=== PATIENT | female | born 1985 | race Caucasian/White ===

== ENCOUNTER → 2020-05-09 | Outpatient (CLI) | payer BC ==
[2020-05-09 15:25] LABS: BASOPHILS # (AUTO) 0.04 x10^3/uL (0-0.1); BASOPHILS % (AUTO) 0 % (0-1); EOSINOPHILS # (AUTO) 0.14 x10^3/uL (0-0.4); EOSINOPHILS % (AUTO) 1 % (1-7); LYMPHOCYTES # (AUTO) 1.59 x10^3/uL (1-3.4); LYMPHOCYTES % (AUTO) 15 % (22-44); MD NO; MEAN CORPUSCULAR HGB CONC 33.4 g/dL (32.4-35.8); MEAN CORPUSCULAR VOLUME 89.6 fL (80-100); MEAN PLATELET VOLUME 8.1 fL (7.4-10.4); MONOCYTES # (AUTO) 0.51 x10^3/uL (0.2-0.8); MONOCYTES % (AUTO) 5 % (2-9); NEUTROPHILS # (AUTO) 8.07 x10^3/uL (1.8-6.8); NEUTROPHILS % (AUTO) 78 % (42-75); PLATELET COUNT 361 x10^3/uL (130-400); RED BLOOD COUNT 4.18 x10^6/uL (3.82-5.3); RED CELL DISTRIBUTION WIDTH 15.6 % (9.6-15.2)
[2020-05-09 15:37] LABS: ALANINE AMINOTRANSFERASE 68 U/L (12-78); ALBUMIN 3.3 g/dL (3.4-5.0); ANION GAP 9 mmol/L (5-15); CALCIUM 9.5 mg/dL (8.5-10.1); CHLORIDE 106 mmol/L (98-107); CREATININE 0.58 mg/dL (0.55-1.02)
[2020-05-09 15:40] LABS: ALKALINE PHOSPHATASE 98 U/L (45-117); BILIRUBIN,TOTAL 0.8 mg/dL (0.2-1.0); TOTAL PROTEIN 7.1 g/dL (6.4-8.2)
== END | disposition home or self-care (01) ==
LOC: LAB 14:57
PROVIDERS: ATTEND Student in an Organized Health Care Education/Training Program
DX: O09.521 Supervision of elderly multigravida, first trimester (principal); Z3A.00 Weeks of gestation of pregnancy not specified
CPT/HCPCS: 36415; 80053; 82306; 84156; 85025; 86592; 86762; 86803; 86850; 86900; 87086; 87340; 87806; G0475

== ENCOUNTER 2020-11-03 08:10 | Outpatient (CLI) | payer BC ==
[~2020-11-03] VITALS: Ht 160 cm; Wt 115.0 kg
[2020-11-03 08:19] VITALS: BP 138/85
== END 2020-11-03 10:37 | disposition home or self-care (01) ==
LOC: LDOP 08:10
PROVIDERS: ATTEND Student in an Organized Health Care Education/Training Program
DX: O09.93 Supervision of high risk pregnancy, unspecified, third trimester (principal); O36.8130 Decreased fetal movements, third trimester, not applicable or unspecified; Z3A.35 35 weeks gestation of pregnancy
CPT/HCPCS: 59025; 76819; 84112

== ENCOUNTER 2020-11-19 09:57 | Inpatient (IN) | payer BC ==
[~2020-11-19] VITALS: Ht 160 cm; Wt 118.6 kg
[2020-11-19] MEDS ORDERED: NEWBORN KIT ONE (10:29)
[2020-11-19] MEDS ORDERED: SODIUM CITRATE/CITRIC ACID 15 ML UDC ONE (10:29)
[2020-11-19] MEDS ORDERED: OXYTOCIN 30U/ 0.9% NaCL 500ML 500 ML ONE (10:29)
[2020-11-19] MEDS ORDERED: METOCLOPRAMIDE 5 MG/ML, 2ML ONE (10:29)
[2020-11-19] MEDS ORDERED: LACTATED RINGERS 1,000 ML IVBOLUS ONE (10:30)
[2020-11-19] MEDS ORDERED: LACTATED RINGERS 1,000 ML IV SCH (10:30)
[2020-11-19] MEDS ORDERED: SODIUM CITRATE/CITRIC ACID 30 ML UDC PO ONE (10:30)
[2020-11-19] MEDS ORDERED: METOCLOPRAMIDE 5 MG/ML, 2ML IV ONE (10:30)
[2020-11-19 11:10] LABS: BASOPHILS % (AUTO) 0 % (0-1); EOSINOPHILS % (AUTO) 1 % (1-7); LYMPHOCYTES % (AUTO) 15 % (22-44); MEAN CORPUSCULAR HEMOGLOBIN 29.7 pg (27.0-34.8); MEAN CORPUSCULAR HGB CONC 34.2 g/dL (32.4-35.8); MEAN PLATELET VOLUME 7.8 fL (7.4-10.4); MONOCYTES % (AUTO) 5 % (2-9); NEUTROPHILS % (AUTO) 80 % (42-75); PLATELET COUNT 282 x10^3/uL (130-400); RED BLOOD COUNT 4.52 x10^6/uL (3.82-5.3); RED CELL DISTRIBUTION WIDTH 15.5 % (9.6-15.2)
[2020-11-19 11:17] LABS: MD NO
[2020-11-19 11:22] LABS: ALANINE AMINOTRANSFERASE 24 U/L (12-78); ALBUMIN 2.6 g/dL (3.4-5.0); ANION GAP 7 mmol/L (5-15); CALCIUM 8.9 mg/dL (8.5-10.1); CHLORIDE 110 mmol/L (98-107); CREATININE 0.55 mg/dL (0.55-1.02)
[2020-11-19 11:24] LABS: ALKALINE PHOSPHATASE 136 U/L (45-117); BILIRUBIN,TOTAL 0.7 mg/dL (0.2-1.0); TOTAL PROTEIN 6.2 g/dL (6.4-8.2)
[2020-11-19] MEDS ORDERED: MIDAZOLAM 1 MG/ML, 2ML IV PRN (11:30)
[2020-11-19] MEDS ORDERED: FENTANYL PF 100 MCG/2ML IV PRN (11:30)
[2020-11-19] MEDS ORDERED: hydrALAzine 20 MG/ML, 1ML IV PRN (11:30)
[2020-11-19] MEDS ORDERED: HYDROcodone/APAP 7.5-325MG/15ML UDC PO PRN (11:30)
[2020-11-19] MEDS ORDERED: PROMETHAZINE 25 MG/ML, 1ML IV PRN (11:30)
[2020-11-19] MEDS ORDERED: ALBUTEROL SULFATE 2.5 MG/3 ML NPPB PRN (11:30)
[2020-11-19] MEDS ORDERED: ONDANSETRON 2MG/ML, 2ML IVPush PRN (11:30)
[2020-11-19] MEDS ORDERED: MEPERIDINE/PF 25MG/0.5ML IVPush PRN (11:30)
[2020-11-19] MEDS ORDERED: HYDROmorphone 2 MG/ML, 1ML IVPush PRN (11:30)
[2020-11-19] MEDS ORDERED: METOPROLOL 1 MG/ML, 5ML IV PRN (11:30)
[2020-11-19] MEDS ORDERED: OXYcodone 5 MG/5 ML ORAL.SOL UDC PO PRN (11:30)
[2020-11-19] MEDS ORDERED: LABETALOL 5MG/ML, 20ML IV PRN (11:30)
[2020-11-19] MEDS ORDERED: EPHEDRINE 50 MG/ML, 1ML IVPush PRN (11:30)
[2020-11-19] MEDS ORDERED: EPHEDRINE 50 MG/ML, 1ML ONE (11:31)
[2020-11-19] MEDS ORDERED: CEFAZOLIN 1,000 MG ONE (11:31)
[2020-11-19] MEDS ORDERED: FENTANYL PF 100 MCG/2ML ONE (11:31)
[2020-11-19] MEDS ORDERED: KETOROLAC 30 MG/1 ML ONE (11:31)
[2020-11-19] MEDS ORDERED: OXYTOCIN 10 UNITS/ML, 1ML ONE (11:31)
[2020-11-19] MEDS ORDERED: ONDANSETRON 2MG/ML, 2ML ONE ×2 (11:31→15:03)
[2020-11-19] MEDS ORDERED: DEXAMETHASONE 4 MG/ML, 1ML ONE (11:31)
[2020-11-19] MEDS ORDERED: PHENYLEPHRINE 10 MG/ML ONE (11:31)
[2020-11-19] MEDS ORDERED: HYDROmorphone 2 MG/ML, 1ML ONE (11:33)
[2020-11-19] MEDS ORDERED: MISOPROSTOL 200 MCG TABLET PR PRN (14:00)
[2020-11-19] MEDS ORDERED: METHYLERGONOVINE 0.2 MG/ML IM PRN (14:00)
[2020-11-19] MEDS ORDERED: ONDANSETRON 2MG/ML, 2ML IV PRN (14:00)
[2020-11-19] MEDS ORDERED: BISACODYL 10 MG SUPP PR PRN (14:00)
[2020-11-19] MEDS ORDERED: MEPERIDINE/PF 50 MG/ML IM PRN ×2 (14:00)
[2020-11-19] MEDS ORDERED: ACETAMINOPHEN 325 MG TABLET PO PRN (14:00)
[2020-11-19] MEDS ORDERED: SIMETHICONE 80 MG CHEW TAB PO PRN (14:00)
[2020-11-19] MEDS ORDERED: morphine SULFATE 10 MG/ML, 1ML IVPush PRN (14:00)
[2020-11-19] MEDS: OXYTOCIN 30U/ 0.9% NaCL 500ML 500 ML IV SCH (14:00)
[2020-11-19] MEDS: LACTATED RINGERS 1,000 ML IV SCH (15:00)
[2020-11-19 15:30] VITALS: BP 143/89
[2020-11-19] MEDS: HYDROcodone/APAP 5/325 TABLET PO PRN ×2 (18:06→22:09)
[2020-11-19] MEDS: DOCUSATE 100 MG CAPSULE PO PRN (19:08)
[2020-11-19] MEDS: KETOROLAC 30 MG/1 ML IV SCH (19:08)
[2020-11-19 19:20] VITALS: BP 117/70
[2020-11-19 20:33] LABS: BASOPHILS % (AUTO) 0 % (0-1); EOSINOPHILS % (AUTO) 0 % (1-7); LYMPHOCYTES % (AUTO) 6 % (22-44); MEAN CORPUSCULAR HEMOGLOBIN 29.7 pg (27.0-34.8); MEAN CORPUSCULAR HGB CONC 34.6 g/dL (32.4-35.8); MEAN PLATELET VOLUME 7.8 fL (7.4-10.4); MONOCYTES % (AUTO) 4 % (2-9); NEUTROPHILS % (AUTO) 90 % (42-75); PLATELET COUNT 276 x10^3/uL (130-400); RED BLOOD COUNT 4.05 x10^6/uL (3.82-5.3); RED CELL DISTRIBUTION WIDTH 14.9 % (9.6-15.2)
[2020-11-19 20:55] LABS: MD SCAN
[2020-11-19 23:43] VITALS: BP 132/77
[2020-11-20] MEDS: KETOROLAC 30 MG/1 ML IV SCH ×3 (01:00→13:26)
[2020-11-20] MEDS: HYDROcodone/APAP 5/325 TABLET PO PRN ×6 (03:24→21:40)
[2020-11-20 03:31] VITALS: BP 123/80
[2020-11-20 07:20] VITALS: BP 126/76
[2020-11-20] MEDS: PRENATAL VIT/IRON/FA 1 EACH TABLET PO SCH (07:31)
[2020-11-20] MEDS: DOCUSATE 100 MG CAPSULE PO PRN ×2 (07:31→20:12)
[2020-11-20] MEDS: LACTATED RINGERS 1,000 ML IV SCH ×2 (10:00)
[2020-11-20] MEDS: OXYTOCIN 30U/ 0.9% NaCL 500ML 500 ML IV SCH ×2 (10:00)
[2020-11-20 12:00] VITALS: BP 112/70
[2020-11-20] MEDS: IBUPROFEN 600 MG TABLET PO PRN ×2 (15:43→21:39)
[2020-11-20] MEDS ORDERED: IBUPROFEN 600 MG TABLET PO PRN (16:00)
[2020-11-20 16:20] VITALS: BP 131/80
[2020-11-20 20:00] VITALS: BP 123/79
[2020-11-21] MEDS: HYDROcodone/APAP 5/325 TABLET PO PRN ×2 (03:50→09:24)
[2020-11-21] MEDS: IBUPROFEN 600 MG TABLET PO PRN ×2 (03:50→09:24)
[2020-11-21 07:40] VITALS: BP 138/84
[2020-11-21] MEDS: PRENATAL VIT/IRON/FA 1 EACH TABLET PO SCH (09:24)
[2020-11-21] MEDS: DOCUSATE 100 MG CAPSULE PO PRN (09:24)
[2020-11-21] MEDS ORDERED: IBUP-1222 PO (09:35)
[2020-11-21] MEDS ORDERED: DOCU-131 PO (09:35)
[2020-11-21] MEDS ORDERED: OXYC5CAP2 PO (09:37)
[2020-11-21] MEDS ORDERED: ACET650S21 PO (09:38)
== END 2020-11-21 11:12 | disposition home or self-care (01) | DRG 798 ==
LOC: EDIP 09:57 → LDIP 10:26 → 2NW 15:15
PROVIDERS: ADMIT Student in an Organized Health Care Education/Training Program; ATTEND Student in an Organized Health Care Education/Training Program
PROC: 0UB70ZZ Excision of Bilateral Fallopian Tubes, Open Approach (ICD-10-PCS; principal; 2020-11-19)
PROC: 10E0XZZ Delivery of Products of Conception, External Approach (ICD-10-PCS; 2020-11-19)
DX: O34.219 Maternal care for unspecified type scar from previous cesarean delivery (principal); Z37.0 Single live birth; O99.344 Other mental disorders complicating childbirth; F32.9 Major depressive disorder, single episode, unspecified; O13.4 Gestational [pregnancy-induced] hypertension without significant proteinuria, complicating childbirth; Z30.2 Encounter for sterilization; Z3A.37 37 weeks gestation of pregnancy; O09.519 Supervision of elderly primigravida, unspecified trimester; Z20.822 Contact with and (suspected) exposure to COVID-19
CPT/HCPCS: 36415; 80053; 82570; 84156; 85025; 86592; 86850; 86900; 87635; 88305; G0378; J0690; J1100; J1170; J1885; J2175; J2405; J3010; J2370; J2590; J2765; J7120